=== PATIENT | female | born 1965 | race Caucasian/White ===

== ENCOUNTER → 2018-10-08 | Outpatient (CLI) | payer OTHER | END | disposition home or self-care (01) | LOC: C.PAT 09:22 | DX: Z01.818 Encounter for other preprocedural examination (principal); D25.9 Leiomyoma of uterus, unspecified; N92.6 Irregular menstruation, unspecified ==

== ENCOUNTER 2018-11-11 08:19 | Inpatient (IN) | payer OTHER ==
[2018-11-11 09:04] VITALS: BMI 22.3
[2018-11-11] MEDS ORDERED: ceFAZolin 1 gm in NS 2 GM/200 ML BAG IVPB ONE (10:24)
[2018-11-11] MEDS ORDERED: Propofol 10 mg/ml Inj (20 ML) ONE (11:01)
[2018-11-11] MEDS ORDERED: Midazolam 2 MG/2 ML VIAL ONE (11:01)
[2018-11-11] MEDS ORDERED: BUPIVACAINE 0.125%/0.9% NACL 600 ML IJ ONE (11:02)
[2018-11-11] MEDS ORDERED: Lidocaine 2% MPF (5 ml) Inj ONE ×2 (12:15)
[2018-11-11] MEDS ORDERED: Bupivacaine 0.25% 20 ML INJ IJ ONE (12:15)
[2018-11-11] MEDS ORDERED: Neostigmine 1:1000 (1 mg/ml) Inj ONE (13:32)
--- NOTE | 2018-11-11 13:49 | PCM.SURG1 ---
Surgeon's Initial Post Op Note - Surgeon's Notes Surgeon: Dr. Turcios , Intraoperative consult with Dr. Acñua Biometrician: Dr. Frye, Horse Rancher Type of Anesthesia: General Endo Anesthesia Administered By: Dr. TEIXEIRA Pre-Operative Diagnosis: 53 YO with Pelvic pain , Left Ovarian cyst , Multiple adhesion , Fibroid uterus , failure of medical therapy Operative Findings: Av uterus 17 wks gestation with Multiple Fibroid , Endometrioma on the left side 7 cm , rectum attached posterior and sigmoid colon by the ovarian cyst Post-Operative Diagnosis: Same as above , Lysis of adhesion performed by the general Surgeon Operation Performed: Exp . Laparotomy, Peritioneal washing , supracervical hysterectomy, BSO , VANDANA Specimen/Specimens Removed: Uterus, bilateral ovaries and tubes Estimated Blood Loss: EBL {In ML}: 100 Blood Products Given: N/A Drains Used: No Drains Post-Op Condition: Good Date of Surgery/Procedure: 11/11/18 Time of Surgery/Procedure: 13:51
[2018-11-11] MEDS ORDERED: HYDROmorphone 0.5 mg/0.5 ml ISec IVP PRN (13:53)
[2018-11-11] MEDS ORDERED: Lactated Ringer's 1,000 ML IV SCH (14:45)
[2018-11-11] MEDS ORDERED: cefOXitin IV 2 gm in Dextrose 2 GM/50 ML BAG IVPB SCH (14:45)
[2018-11-11] MEDS: cefOXitin IV 2 gm in Dextrose 2 GM/50 ML BAG IVPB SCH ×2 (16:13→23:53)
--- NOTE | 2018-11-12 00:23 | OP ---
PROCEDURE DATE: 11/11/2018 PREOPERATIVE DIAGNOSIS: Intraabdominal adhesions. POSTOPERATIVE DIAGNOSIS: Intraabdominal adhesions. PROCEDURE CARRIED OUT: Lysis of adhesions. SURGEON: Dayne Ireland Jr., MD ASSISTANTS: Miguel Ángel Reddy DO; Jailene Turcios MD; Leon Frye MD. ANESTHESIOLOGIST: Dr. Hsu. DESCRIPTION OF PROCEDURE: The patient is a 53-year-old woman undergoing an abdominal hysterectomy who I was asked to see for intraabdominal adhesions between endometrioma near the left ovary and the adjacent colon. Dr. Turcios completed the hysterectomy and then we proceeded with a second . During the operation, the endometrial cyst did rupture. This was all carefully suctioned away. The base was then ligated and divided. The adhesions near this were carefully ligated and divided away between the colon and the pelvic fissure. After this had been done, we were satisfied with hemostasis, and we were satisfied with the fact that no bowel was injured during the procedure. The abdomen was then closed. Details will be dictated by Dr. Turcios. My part was basically intraoperative consultation and intraoperative lysis of adhesions. Dayne Ireland Jr., MD
[2018-11-12] MEDS: cefOXitin IV 2 gm in Dextrose 2 GM/50 ML BAG IVPB SCH (07:53)
[2018-11-12] MEDS ORDERED: Oxycodone/Acetaminophen 5/325 mg Tab PO PRN ×2 (08:13→08:16)
[2018-11-12 14:13] LABS: BASO % 0.3 % (0.0-2.0); EOS % 0.5 % (0.0-4.0); LYMPH # 0.7 K/uL (1.0-4.3); MEAN CELL VOLUME 86.3 fL (81.0-99.0); MEAN CORPUSCULAR HEMOGLOBIN 28.3 pg (27.0-31.0); MEAN CORPUSCULAR HGB CONC 32.8 g/dL (33.0-37.0); MEAN PLATELET VOLUME 9.5 fL (7.2-11.7); MONO # 0.5 K/uL (0.0-0.8); NEUT # 6.1 K/uL (1.8-7.0); NEUT % 82.2 % (50.0-75.0); RBC 4.24 Mil/uL (3.80-5.20); RED CELL DISTRIBUTION WIDTH 15.4 % (11.5-14.5); WHITE BLOOD COUNT 7.4 K/uL (4.8-10.8)
[2018-11-12 14:20] LABS: BLOOD UREA NITROGEN 7 mg/dL (7-17); CALCIUM 8.9 mg/dl (8.6-10.4); GFR NON-AFRICAN AMERICAN > 60
--- NOTE | 2018-11-12 15:40 | CP.PCM.PN ---
<Andrae Montemayor M - Last Filed: 11/12/18 15:37> Subjective - Date & Time of Evaluation Date of Evaluation: 11/12/18 Time of Evaluation: 10:00 - Subjective Subjective: Tube Filler progress note for Dr. Villafana. Patient seen and examined at bedside. Patient s/p laporatomy for lysis of adhesions, ISHAN POD 1. Pt reports feeling well, with minor abdominal pain around incision site, rated 3/10. Pt denies flatulence/ bowel movement post op. Denies fevers, chills, headaches, vision changes, abdominal pain, chest pain, SOB, diarrhea, dysuruia, hematuria. Objective - Vital Signs/Intake and Output Vital Signs (last 24 hours): Temp Pulse Resp BP Pulse Ox 99.4 F 74 18 107/66 97 11/12/18 08:00 11/12/18 08:00 11/12/18 08:00 11/12/18 08:00 11/12/18 08:00 Intake and Output: 11/12/18 11/12/18 06:59 18:59 Intake Total 1450 Output Total 2000 Balance -550 - Medications Medications: Current Medications Docusate Sodium (Colace) 100 mg PO BID YOLANDA Last Admin: 11/12/18 09:50 Dose: 100 mg BUPIVACAINE 0.125%/0.9% NACL (Bupivacaine-Ns 0.125% On-Q Personalization Specialist) 600 mls @ 4 mls/ hr IJ ONCE ONE Stop: 11/17/18 17:01 Lactated Ringer's (Lactated Ringer's) 1,000 mls @ 100 mls/hr IV .Q10H [facility] Ibuprofen (Motrin Tab) 600 mg PO Q6 PRN PRN Reason: Pain, Mild (1-3) Last Admin: 11/12/18 14:33 Dose: 600 mg Oxycodone/Acetaminophen (Percocet 5/325 Mg Tab) 1 tab PO Q4H PRN PRN Reason: Pain, moderate (4-7) Stop: 11/15/18 08:14 Last Admin: 11/12/18 09:49 Dose: 1 tab Oxycodone/Acetaminophen (Percocet 5/325 Mg Tab) 2 tab PO Q6H PRN PRN Reason: Pain, severe (8-10) Stop: 11/15/18 08:17 - Labs Labs: 11/12/18 14:00 11/12/18 14:00 - Constitutional Appears: Non-toxic, No Acute Distress - Head Exam Head Exam: NORMAL INSPECTION - Eye Exam Eye Exam: Normal appearance - ENT Exam ENT Exam: Mucous Membranes Moist - Respiratory Exam Respiratory Exam: Clear to Ausculation Bilateral, NORMAL BREATHING PATTERN. absent: Rales, Rhonchi, Wheezes - Cardiovascular Exam Cardiovascular Exam: +S1, +S2 - GI/Abdominal Exam GI & Abdominal Exam: Soft, Normal Bowel Sounds Additional comments: approximately 7 cm incision lower abdominal, clean, dry, intact onQ in place - Extremities Exam Extremities Exam: Full ROM, Normal Inspection. absent: Calf Tenderness, Pedal Edema - Neurological Exam Neurological Exam: Alert, Awake, Oriented x3 - Psychiatric Exam Psychiatric exam: Normal Affect, Normal Mood Assessment and Plan - Assessment and Plan (Free Text) Assessment: 53 F s/p ISHAN & lysis of adhesions Plan: - out of bed to chair - IV abx - PO hydration - onQ primary for mark & motrin & percocet - c/w colace <Christal Villafana - Last Filed: 11/12/18 16:46> Objective - Vital Signs/Intake and Output Vital Signs (last 24 hours): Temp Pulse Resp BP Pulse Ox 99.4 F 74 18 107/66 97 11/12/18 08:00 11/12/18 08:00 11/12/18 08:00 11/12/18 08:00 11/12/18 08:00 Intake and Output: 11/12/18 11/12/18 06:59 18:59 Intake Total 1450 3600 Output Total 2000 900 Balance -550 2700 - Medications Medications: Current Medications Docusate Sodium (Colace) 100 mg PO BID YOLANDA Last Admin: 11/12/18 09:50 Dose: 100 mg BUPIVACAINE 0.125%/0.9% NACL (Bupivacaine-Ns 0.125% On-Q Personalization Specialist) 600 mls @ 4 mls/hr IJ ONCE ONE Stop: 11/17/18 17:01 Ibuprofen (Motrin Tab) 600 mg PO Q6 PRN PRN Reason: Pain, Mild (1-3) Last Admin: 11/12/18 14:33 Dose: 600 mg Oxycodone/Acetaminophen (Percocet 5/325 Mg Tab) 1 tab PO Q4H PRN PRN Reason: Pain, moderate (4-7) Stop: 11/15/18 08:14 Last Admin: 11/12/18 09:49 Dose: 1 tab Oxycodone/Acetaminophen (Percocet 5/325 Mg Tab) 2 tab PO Q6H PRN PRN Reason: Pain, severe (8-10) Stop: 11/15/18 08:17 - Labs Labs: 11/12/18 14:00 11/12/18 14:00 Assessment and Plan - Assessment and Plan (Free Text) Assessment: pod # 1 S/P Laparotomy with Lysis of Adhesions, ISHAN and BSO Post-Op H&H 12.0/36.6 VSS OOB and little ambulation Incision Clean, Dry and Intact, healing well OnQ in place and working well Stable and Satisfactory condition and recovery Plan: Advance care Increase po water intake and ambulation May shower Continue present pain medications
[2018-11-13 05:35] VITALS: PULSE 81
[2018-11-13 10:33] VITALS: BP 105/69; RESP 18; TEMP 97.4; O2SAT 100
--- NOTE | 2018-11-13 10:54 | CP.PCM.PN ---
Subjective - Date & Time of Evaluation Date of Evaluation: 11/13/18 Time of Evaluation: 10:30 - Subjective Subjective: HUMAN SERVICES CARE SPECIALIST note for Dr. Fernandez Pt seen and examined at bedside. tient s/p laporatomy for lysis of adhesions, ISHAN POD 2. Pt reports feeling well, passing bowel movement, some abdominal pain with movement, producing urine, tolerating diet. Denies headaches, chest pain, SOB, F/C, diarrhea, constipation. Objective - Vital Signs/Intake and Output Vital Signs (last 24 hours): Temp Pulse Resp BP Pulse Ox 97.4 F L 81 18 105/69 100 11/13/18 07:30 11/13/18 07:30 11/13/18 07:30 11/13/18 07:30 11/13/18 07:30 Intake and Output: 11/13/18 11/13/18 06:59 18:59 Output Total 2 Balance -2 - Medications Medications: Current Medications Docusate Sodium (Colace) 100 mg PO BID YOLANDA Last Admin: 11/13/18 09:31 Dose: Not Given BUPIVACAINE 0.125%/0.9% NACL (Bupivacaine-Ns 0.125% On-Q Public Affairs Officer) 600 mls @ 4 mls/hr IJ ONCE ONE Stop: 11/17/18 17:01 Ibuprofen (Motrin Tab) 600 mg PO Q6 PRN PRN Reason: Pain, Mild (1-3) Last Admin: 11/13/18 09:32 Dose: 600 mg Oxycodone/Acetaminophen (Percocet 5/325 Mg Tab) 1 tab PO Q4H PRN PRN Reason: Pain, moderate (4-7) Stop: 11/15/18 08:14 Last Admin: 11/12/18 09:49 Dose: 1 tab Oxycodone/Acetaminophen (Percocet 5/325 Mg Tab) 2 tab PO Q6H PRN PRN Reason: Pain, severe (8-10) Stop: 11/15/18 08:17 - Labs Labs: 11/12/18 14:00 11/12/18 14:00 - Constitutional Appears: Non-toxic, No Acute Distress - Head Exam Head Exam: NORMAL INSPECTION - Eye Exam Eye Exam: EOMI - ENT Exam ENT Exam: Mucous Membranes Moist - Cardiovascular Exam Cardiovascular Exam: +S1, +S2 - GI/Abdominal Exam GI & Abdominal Exam: Soft. absent: Guarding, Rigid Additional comments: incision site clean, dry, intact - Back Exam Back Exam: absent: CVA tenderness (L), CVA tenderness (R) - Neurological Exam Neurological Exam: Alert, Awake, Oriented x3 - Psychiatric Exam Psychiatric exam: Normal Affect, Normal Mood - Skin Skin Exam: Dry, Normal Color, Warm Assessment and Plan - Assessment and Plan (Free Text) Assessment: 53 F s/p ISHAN & lysis of adhesions; post op H/H stable Plan: - out of bed to chair - PO hydration - onQ primary for pain & motrin/ percocet PRN - c/w colace - Advance care - Increase po water intake and ambulation - May shower - Continue present pain medications
--- NOTE | 2018-11-19 07:18 | OP ---
PROCEDURE DATE: 11/11/2018 PREOPERATIVE DIAGNOSES: Chronic pelvic pain, a leiomyoma, a complex ovarian cyst noted to be on the left side, approximately 6 to 8 cm. POSTOPERATIVE DIAGNOSES: Chronic pelvic pain, fibroid uterus, and endometrioma found to be on the right side, approximately 6 to 8 cm, multiple adhesions of sigmoid colon attached to the ovarian cyst. PROCEDURES: Exploratory laparotomy, supracervical hysterectomy with bilateral salpingo-oophorectomy and lysis of adhesions. SURGEON: Jailene Turcios MD INTRAOPERATIVE CONSULT BY: Dayne Ireland Jr., MD ASSISTANTS: Resident as well as Dr. Frye. TYPE OF ANESTHESIA: General anesthesia with ET tube. OPERATIVE FINDINGS: A large uterus, approximately 24 weeks' gestation, noted to have an endometrioma on the right side and multiple adhesions. INDICATIONS: The patient was informed that at this particular point, the uterus is going to be removed as well as the ovarian cyst. She was also informed because of the fact that we were removing bilateral ovaries, she would automatically enter into menopause. She did have a longstanding history of endometriosis. So, the chronic pelvic pain would not necessarily disappear. She can develop chronic pelvic pain due to adhesions or to the endometriosis. The risk factors included infection, bleeding, damage to the surrounding organs and tissues, complication from anesthesia, and possible . All questions were answered and her daughter was present and informed consent was obtained. DESCRIPTION OF PROCEDURE: Once the informed consent was obtained, she was then taken to the operating room and she was given anesthesia, found to be adequate. She was placed in dorsal lithotomy position. A Pfannenstiel incision was made and the incision was then carried down to the fascia. The fascia was then excised transversely and dissected off the rectus muscle using a sharp dissection. The peritoneum was then opened with two Zaida clamps. Peritoneal washing was performed and the laparotomy revealed that she had a large leiomyoma and multiple adhesions. The sigmoid colon was attached into the left side and due to the multiple adhesions, an intraoperative consult was called by the general surgeon and the lysis of adhesions was performed. In that particular instance, the uterus itself appeared large. So, lysis of adhesion was performed by Dr. Ireland. Two Zaida clamps were utilized to clamp the round ligament and suture ligated with 0 Vicryl. Excellent hemostasis was performed on the right side. Once that the peritoneum was opened laterally to the infundibulopelvic ligament, the anterior leaf of the broad ligament was divided and the bladder flap was created. The retroperitoneal space was then dissected out. The uterus was identified and found to be well low in the pelvis and clear of any surgical field. The infundibulopelvic ligament was clamped, cut, and suture ligated with 0 Vicryl. Excellent hemostasis was performed. The same procedure was carried on to the right side with the ureter again found to be well low in the pelvis, clear of any surgical field. Once the anterior leaf of the broad ligament was completely divided, the bladder flap was taken down off the lower uterine segment of the uterus and the cervix with a sponge stick. The uterine vessels were skeletonized bilaterally, clamped, cut, and suture ligated. In that particular instance, the cervical stump was closed with [id number] sutures. Excellent hemostasis was noted. Again, lysis of adhesions was performed by Dr. Ireland because the endometrioma on the left side was attached to the sigmoid, which was basically freed and removed and submitted to the pathology. At that time, the uterus, tubes, and ovaries were all sent to pathology. All pedicles were then sequentially checked for hemostasis, which appeared excellent. All packs and retractors were removed from the abdomen. The peritoneum was then closed using 2-0 plain sutures. The fascia was then closed using a running non-locking suture of 1-0 Vicryl. The subcutaneous tissue was inspected and hemostasis was ensured with the cautery. The skin was closed with running subcuticular sutures. At the end of the procedure, all sponges, needles, and instrument counts were correct x2. Estimated blood loss was 300 mL. The patient was then taken to the recovery room in stable condition. Jailene Turcios MD
== END 2018-11-13 13:00 | disposition home or self-care (01) | DRG 519 ==
LOC: C.9S 08:19 → C.4M 14:07
PROVIDERS: ADMIT Obstetrics & Gynecology; ATTEND Obstetrics & Gynecology
PROC: 0UT20ZZ Resection of Bilateral Ovaries, Open Approach (ICD-10-PCS; 2018-11-11)
PROC: 0UT70ZZ Resection of Bilateral Fallopian Tubes, Open Approach (ICD-10-PCS; 2018-11-11)
PROC: 0DNW0ZZ Release Peritoneum, Open Approach (ICD-10-PCS; 2018-11-11)
PROC: 0UT90ZL Resection of Uterus, Supracervical, Open Approach (ICD-10-PCS; principal; 2018-11-11 09:30)
DX: D25.1 Intramural leiomyoma of uterus (principal); K66.0 Peritoneal adhesions (postprocedural) (postinfection); N80.0 Endometriosis of uterus; N92.6 Irregular menstruation, unspecified; N83.202 Unspecified ovarian cyst, left side; N80.2 Endometriosis of fallopian tube